=== PATIENT | male | born 1965 | race Caucasian/White ===

== ENCOUNTER 2018-04-18 07:15 | Inpatient (IN) | payer OTHER ==
--- NOTE | 2018-04-23 11:58 | GHP ---
[f rep st] PREOP HISTORY AND PHYSICAL DATE OF ADMISSION: 04/24/2018 PROBLEM: Left hip severe degenerative arthritis. HISTORY OF PRESENT ILLNESS: The patient is a 52-year-old man admitted for a left hip Marcos hip resurfacing arthroplasty. He lives in [place], [place]. He has had progressive pain in both hips fo r the past 9 years. He has daily pain and night pain. He is using ibuprofen regularly. His activit ies are very limited because of his hip pain. His hips are very stiff. He will undergo a left hip [place] hip resurfacing arthroplasty. He is scheduled to have the right hip done in June. PAST MEDICAL HISTORY: Overall he is in excellent general health. No history of heart disease, stent s, DVT, hepatitis, MRSA staph infections, sleep apnea or bleeding problems. CURRENT MEDICATIONS: None. ALLERGIES: Drug allergies: None. Metal allergy: None. Latex allergy: None. SOCIAL HISTORY: The patient is single but has a female partner. He does not smoke cigarettes and oc casionally drinks alcohol. He works as a oxyacetylene welder. PHYSICAL EXAMINATION: VITAL SIGNS: Height 5 feet, 11.5 inches. Weight 190 pounds. BMI 26.1. EYES : Conjunctivae and sclerae are clear. Pupils are round and reactive. MOUTH: Good oral hygiene. N o loose teeth. CHEST: Clear. HEART: Regular rhythm. No murmurs. EXTREMITIES: Pertinent finding s limited to his left hip. He flexes to 70 degrees. As he flexes the hip, he develops a 20-degree e xternal rotation contracture and has no further internal or external rotation. Abduction 20 degrees. IMAGING: His films show very severe degenerative arthritis of both hips. He is [id number] in both hips. Extensive osteophyte formation is present in the left hip. IMPRESSION ON ADMISSION: Severe bilateral hip degenerative arthritis. PLAN: He will undergo a left hip resurfacing arthroplasty. The surgery has been described to him an d his partner including the risks, complications, expectations, and recovery time. I have discussed with him the risk of dislocation, femoral neck fracture, infection, and sciatic nerve injury. I also have described to him in detail the potential risk with elevated metal ions in the blood and in the soft tissues around the hip joint. He understands that there are no 25-30 year followup studies on h ip resurfacing. All his questions have been answered, and he consents to surgery. /[id number]/MODL
[2018-04-24] MEDS ORDERED: FAMOTIDINE 20 MG TAB PO ONE (05:40)
[2018-04-24] MEDS ORDERED: ONDANSETRON 4 MG/2 ML VIAL IVP ONE (05:40)
[2018-04-24] MEDS ORDERED: ceFAZolin 2 GM/DEXTROSE 100 ML IV ONE (05:40)
[2018-04-24] MEDS ORDERED: DEXAMETHASONE 4 MG/ML VIAL IVP ONE (05:40)
[2018-04-24] MEDS ORDERED: GABAPENTIN 300 MG CAP PO ONE (05:40)
[2018-04-24] MEDS ORDERED: ACETAMINOPHEN 325 MG TAB PO ONE (05:40)
[2018-04-24] MEDS ORDERED: LR 1,000 ML IV ONE (05:43)
[2018-04-24] MEDS ORDERED: TRANEXAMIC ACID 1,000 MG in NS 100 ML IV ONE (06:00)
[2018-04-24] MEDS ORDERED: POVIDONE-IODINE 20 ML in SODIUM CL IRRIG SOLUTION 500 ML IRR ONE (06:00)
[2018-04-24] MEDS ORDERED: ROPIVACAINE 0.2% 80 MG, EPINEPHrine 0.2 MG, KETOROLAC TROMETHAMINE 30 MG in SYRINGE 0 ML IU ONE (06:00)
[2018-04-24] MEDS ORDERED: ceFAZolin 1 GM/5 ML SYR ONE (06:44)
[2018-04-24] MEDS ORDERED: MIDAZOLAM 2 MG/2 ML VIAL IVP ONE (07:00)
--- NOTE | 2018-04-24 07:03 | PDHPUP ---
History & Physical Update H&P update statement: This history and physical update is based on an assessment of the patient which was completed after admission or registration (within 24 hours), but prior to the surgery/procedure. H&P update: H&P reviewed & patient examined
--- NOTE | 2018-04-24 07:04 | PDANEPAE ---
ANE History of Present Illness Left hip Resurfacing ANE Past Medical History - Cardiovascular History Hx Hypertension: No Hx Arrhythmias: No Hx Chest Pain: No Hx Coronary Artery / Peripheral Vascular Disease: No Hx CHF / Valvular Disease: No Hx Palpitations: No - Pulmonary History Hx COPD: No Hx Asthma/Reactive Airway Disease: No Hx Recent Upper Respiratory Infection: No Hx Oxygen in Use at Home: No Hx Sleep Apnea: No Sleep Apnea Screening Result - Last Documented: Negative - Neurologic History Hx Cerebrovascular Accident: No Hx Seizures: No Hx Dementia: No - Endocrine History Hx Diabetes: No Hypothyroid: No Hyperthyroid: No Obesity: no - Renal History Hx Renal Disorders: No - Liver History Hx Hepatic Disorders: No - Neurological & Psychiatric Hx Hx Neurological and Psychiatric Disorders: No - Cancer History Hx Cancer: No - Congenital Disorder History Hx Congenital Disorders: No - GI History GERD: no Hx Gastrointestinal Disorders: No - Other Health History Other Health History: OA -BILAT HIP -L HIP WORSE - Chronic Pain History Chronic Pain: Yes (BILAT HIPS) - Surgical History Prior Surgeries: tonsillectomy-child;. L shoulder surgery s/p ; ANE Review of Systems Review of systems is: negative Review of Systems: - Exercise capacity METS (RN): 5 METS ANE Patient History - Allergies Allergies/Adverse Reactions: No Known Allergies Allergy (Unverified 04/09/18 11:44) - Home Medications Home Medications: Aspirin 04/09/18 [Last Taken 04/13/18] Ibuprofen 04/09/18 [Last Taken 04/13/18] - NPO status NPO Since - Liquids (Date): 04/24/18 NPO Since - Liquids (Time): 01:00 NPO Since - Solids (Date): 04/23/18 NPO Since - Solids (Time): 19:30 - Anes Hx Anes Hx: post operative nausea - Smoking Hx Smoking Status: Never smoked ANE Labs/Vital Signs - Vital Signs Blood Pressure: 132/85 Heart Rate: 66 Respiratory Rate: 16 O2 Sat (%): 98 Height: 180.34 cm Weight: 81.647 kg ANE Physical Exam - Airway Neck exam: FROM Mallampati Score: Class 1 Mouth exam: normal dental/mouth exam - Pulmonary Pulmonary: no respiratory distress, no rales or rhonchi - Cardiovascular Cardiovascular: regular rate and rhythym, no murmur, rub, or gallop - ASA Status ASA Status: I ANE Anesthesia Plan Anesthesia Plan: spinal Total IV Anesthesia: Yes
[2018-04-24] MEDS ORDERED: BUPIVACAINE/EPI 0.5% 30 ML SDV ONE ×2 (07:13→07:14)
[2018-04-24] MEDS ORDERED: BUPIVACAINE 0.25% 30 ML SDV ONE (07:19)
[2018-04-24] MEDS ORDERED: fentaNYL 100 MCG/2 ML INJ ONE ×2 (07:20→07:59)
[2018-04-24] MEDS ORDERED: PROPOFOL/EMULSION 500 MG/50 ML BOTTLE IV ONE ×2 (07:20→07:59)
[2018-04-24] MEDS ORDERED: LIDOCAINE 2% 5 ML SDV ONE (08:10)
[2018-04-24] MEDS ORDERED: ONDANSETRON 4 MG/2 ML VIAL ONE ×2 (08:10→10:14)
[2018-04-24] MEDS ORDERED: HYDROmorphONE/DILAUDID 1 MG/ML INJ IVP PRN (08:32)
[2018-04-24] MEDS ORDERED: fentaNYL 100 MCG/2 ML INJ IVP PRN (08:32)
[2018-04-24] MEDS ORDERED: PROMETHAZINE HCL 25 MG/ML INJ IVP PRN ×2 (08:32→09:08)
[2018-04-24] MEDS ORDERED: ACETAMINOPHEN 500 MG TAB PO PRN (08:32)
[2018-04-24] MEDS ORDERED: NALOXONE HCL 0.4 MG/ML INJ IVP PRN (08:32)
[2018-04-24] MEDS ORDERED: ONDANSETRON 4 MG/2 ML VIAL IVP PRN (08:32)
[2018-04-24] MEDS ORDERED: DIAZEPAM 5 MG/ML 1 ML SYR IVP PRN (08:32)
[2018-04-24] MEDS ORDERED: oxyCODONE IR 5 MG TAB PO PRN ×2 (08:32→09:08)
[2018-04-24] MEDS ORDERED: ONDANSETRON DISINTEGRATING 4 MG TAB PO PRN (09:08)
[2018-04-24] MEDS ORDERED: PROMETHAZINE HCL 25 MG SUPPR PR PRN (09:08)
[2018-04-24] MEDS ORDERED: diphenhydrAMINE 25 MG CAP PO PRN (09:08)
[2018-04-24] MEDS ORDERED: MAGNESIUM HYDROXIDE 30 ML UDCUP PO PRN (09:08)
[2018-04-24] MEDS ORDERED: BISACODYL 10 MG SUPP PR PRN (09:08)
[2018-04-24] MEDS ORDERED: METOCLOPRAMIDE 10 MG/2 ML VIAL IVP PRN (09:08)
[2018-04-24] MEDS ORDERED: LACTULOSE 20 GM/30 ML UDCUP PO PRN (09:08)
[2018-04-24] MEDS ORDERED: POLYETHYLENE GLYCOL 3350 17 GM PKT PO PRN (09:08)
[2018-04-24] MEDS ORDERED: CYCLOBENZAPRINE 10 MG TAB PO PRN (09:08)
[2018-04-24] MEDS ORDERED: DIPHENOXYLATE/ATROPINE LOMOTIL 1 TAB PO PRN (09:08)
[2018-04-24] MEDS ORDERED: TEMAZEPAM 15 MG CAP PO PRN (09:08)
[2018-04-24] MEDS ORDERED: traMADol 50 MG TAB PO PRN (09:08)
--- NOTE | 2018-04-24 09:08 | POSTOPPROG ---
Post Op Note Date of Operation: 04/24/18 Surgeon: Deep Garcia Chief Airport Guide: Claudia/Delmy Anesthesiologist: Kwesi Anesthesia: IV Sedation, Spinal Post-op Diagnosis: left hip arthritis Procedure: L BHR Inf/Abcess present in the surg proc area at time of surgery?: No EBL: 100-500
[2018-04-24] MEDS ORDERED: LR 1,000 ML IV SCH (09:30)
--- NOTE | 2018-04-24 09:58 | GOP ---
[f rep st] OPERATIVE REPORT DATE OF OPERATION: 04/24/2018 SURGEON: Deep Garcia MD TALENT ACQUISITION RELATIONSHIP MANAGER: Ko Taylor CFA. Harish Brock MD. ANESTHESIA: A combination of Marcaine, spinal, and IV sedation. ANESTHESIOLOGIST: By Kelly Orosco MD. PREOPERATIVE DIAGNOSIS: Left hip severe degenerative arthritis. POSTOPERATIVE DIAGNOSIS: Left hip severe degenerative arthritis. PROCEDURE PERFORMED: A left hip Marcos hip resurfacing arthroplasty. FINDINGS: ESTIMATED BLOOD LOSS: About 400 mL. I used a [employer] [place] hip resurfacing system. The acetabular component was 58 mm in d iameter and press-fit. The femoral head was 52 mm and cemented. He was awakened from anesthesia and rolled to the supine position on his [facility]. A long-leg compressive stocking and SCD were applied to the operative leg. He wore a stocking and SCD on the opposite leg during the procedure. An abduction pillow was placed between his knees. He was awakened from anesthesia and transferred to his [facility]. He was taken to PACU in satisfactory condition. There were no recognized intr aoperative complications. The sponge and needle count were correct on 2 occasions. Ko Taylor and Dr. Harish Brock acted as surgical assistants. Their assistance was a medical neces sity for safe completion of the procedure. DESCRIPTION OF PROCEDURE: The patient was given 2 g of IV Ancef preoperatively within 60 minutes of surgery. He also received IV tranexamic acid at a dose of 1000 mg. He was placed on the operating r oom table and given spinal anesthesia with Marcaine by Dr. Orosco. He was then placed supine and giv en IV sedation. A Mccollum catheter was not used. He wore a compressive stocking and SCD on the nonope rative leg. He was rolled to the right lateral decubitus position. An axillary roll was used, and a ll pressure points were carefully padded. The position was secured with the pegboard table attachmen t. I was careful to lock his pelvis in a vertical position. His perineum was isolated with plastic adhesive drapes. The left hip and left lower extremity were prepped with ChloraPrep. They were drap ed free using sterile sheets, stockinette, and Ioban plastic adhesive drape. The World Health Organization time-out was performed to verify the correct patient identity and the c orrect surgical side and site. The [place]har time-out was also performed. I made a 7-inch straight oblique posterolateral hip skin incision. The subcutaneous tissues were sha rply divided, and hemostasis was obtained using electrocautery. The fascia reinaldo was identified and s plit along the axis of its fibers. I then curved posteriorly and proximally, and split the fascia of the gluteus ellie and bluntly split the muscle fibers in line with their orientation. His sciatic nerve was identified and protected throughout the procedure. The Charnley self-retaining retractor was inserted. The external rotators and the posterior hip capsule were divided as separate layers at the base of the femoral neck, tagged, and reflected posteriorly. The gluteus ellie tendon was div ided and tagged in order to improve exposure and release tension on the sciatic nerve. The hip was d islocated posteriorly. He had severe degenerative changes on his femoral head. I used a sizing gaug e to check the diameter of the neck and concluded that 52 mm was the proper head size. I performed a complete circumferential capsulotomy. I was able to retract the femoral head anteriorly and superio rly, and hold it out of place with appropriate retractors. The remnant of his badly damaged labrum w as excised. His acetabulum was reamed sequentially up to 58 mm. I selected a 58 mm Monoblock porous -coated acetabular component with an outside diameter of 58 mm. This was firmly impacted and was a v lucy tight fit. I was careful to determine proper inclination and anteversion. I used the transverse acetabular ligament remnant and other acetabular bony landmarks to help me determine proper cup orie ntation. Large posterior inferior and anterior inferior osteophytes were removed with an osteotome a nd rongeur. I was careful to leave a good lip of bone and capsule extending beyond the anterior-infe rior lip of the metal cup. I made sure there were no remaining anterior acetabular osteophytes that would impinge on the femoral neck. I then returned to preparation of the femoral head. Using appropriate jigs and guides, I inserted a guide pin into the femoral head and neck. I was careful to position it in such a way that there woul d be no notching of the neck. The large sterile metal goniometer was used to check the neck shaft an gle. I reamed over the guide pin and inserted a reaming guide. I then used a cylindrical reamer snehal n to the head and neck junction. This was followed by the flat reamer and the chamfer reamer. The h ead was sized for 52 mm. There was no impingement or damage to the neck. I drilled a small hole in the lesser trochanter and inserted a suction cannula to create negative pressure in the medullary can al. Small holes were drilled on the flattened chamfer surfaces of the prepared head for cement ancho rs. The head was thoroughly cleaned with the pulsating lavage irrigation and thoroughly dried. I us ed a CarboJet device to blow dry the cancellous surfaces. A single batch of Simplex cement with tobr amycin was mixed. At about 50 seconds, I poured the liquid cement into the head component, inserted it onto the femoral head, and impacted it into place. Excess cement was removed before it hardened. The acetabulum was irrigated and cleaned, and inspected, and the hip was reduced 1 final time. Stabi lity and range of motion were checked. I placed my finger along the anterior aspect of the acetabula r component and flexed the hip to 110 degrees. There was no anterior impingement. The suction cannu la rebekah the lesser trochanter was removed. The wound was thoroughly irrigated with a dilute Betadine solution. 40 mL of the joint anesthetic cocktail was injected into the capsule, the deep musculature , and the subcutaneous tissues along the skin edges. The sciatic nerve was reinspected and looked unharmed. The external rotators and the posterior hip c apsule were repaired in separate layers with #2 FiberWire sutures through drill holes in the greater trochanter. The gluteus ellie was repaired with two #2 [id number] FiberWire sutures. The fas aquilino reinaldo was repaired first with 2 interrupted [id number]-[id number] #2 FiberWire sutures followed by a run queta #2 barbed Ethicon Stratafix PDO suture. The subcutaneous tissues were closed with a running 0 b arbed Ethicon Stratafix Monoderm suture. The skin was closed with a running 3-0 barbed Ethicon Strat afix Monoderm subcuticular suture. The skin edges were reapproximated and sealed with Dermabond glue . The wound was covered with a large sterile Mepilex waterproof dressing. The sacral Mepilex dressi ng was also applied. /[id number]/MODL
--- NOTE | 2018-04-24 10:17 | PDMN ---
Medical Necessity Medical necessity: MCG S565, Hip Resurfacing 2 days and S560 Hip Arthroplasty A- 2 days: Left hip Marcos hip resurfacing arthroplasty.
[2018-04-24] MEDS: KETOROLAC 15 MG/1 ML SDV IVP SCH ×2 (12:27→18:23)
[2018-04-24] MEDS: ACETAMINOPHEN 325 MG TAB PO SCH ×2 (12:29→18:24)
[2018-04-24] MEDS: ceFAZolin 2 GM/DEXTROSE 100 ML IV SCH (15:13)
--- NOTE | 2018-04-24 17:51 | POSTANESTH ---
Post Anesthetic Evaluation Cardiovascular Status: Normal, Stable Respiratory Status: Normal, Stable Level of Consciousness/Mental Status: Can Participate in Eval Pain Control: Adequate, Prn Tx Ordered Nausea/Vomiting Control: Adequate, Prn Tx Ordered Complications Possibly Related to Anesthesia: None Noted
[2018-04-24] MEDS: FAMOTIDINE 20 MG TAB PO SCH (21:04)
[2018-04-24] MEDS: SENNOSIDES/DOCUSATE SODIUM TAB PO SCH (21:05)
[2018-04-24] MEDS: ASPIRIN 325 MG TAB PO SCH (21:05)
[2018-04-25] MEDS: KETOROLAC 15 MG/1 ML SDV IVP SCH ×2 (00:09→05:45)
[2018-04-25] MEDS: ceFAZolin 2 GM/DEXTROSE 100 ML IV SCH (00:09)
[2018-04-25] MEDS: ACETAMINOPHEN 325 MG TAB PO SCH ×2 (00:10→05:46)
[2018-04-25 07:52] VITALS: BP 141/91
[2018-04-25] MEDS ORDERED: FERROUS SULFATE 140 MG TAB.ER PO SCH (09:00)
[2018-04-25] MEDS: ASPIRIN 325 MG TAB PO SCH (09:35)
--- NOTE | 2018-04-25 09:36 | SOAPPROG ---
SOAP Progress Note Assessment/Plan: Assessment: Afebrile. Mild pain. Up and walking in [place]. Has done stairs. Nausea yesterday, but better today. H/H is good. Sciatic nerve intact. Films look good. Dsg is dry. Plan: DC today. 04/25/18 09:35 Objective: Vital Signs Temp Pulse Resp BP Pulse Ox 36.9 C 81 16 141/91 H 98 04/25/18 07:49 04/25/18 07:49 04/25/18 07:49 04/25/18 07:49 04/25/18 07:49 Laboratory Results 04/25/18 04:52 04/24/18 04/25/18 04/26/18 05:59 05:59 05:59 Intake Total 2815 Output Total 1225 Balance 1590 ICD10 Worksheet Patient Problems: Problems Problem Status Onset Osteoarthritis of left hip Acute
[2018-04-25] MEDS: FAMOTIDINE 20 MG TAB PO SCH (09:39)
[2018-04-25] MEDS: SENNOSIDES/DOCUSATE SODIUM TAB PO SCH (09:39)
--- NOTE | 2018-04-25 09:50 | GDS ---
[f rep st] DISCHARGE SUMMARY ADMISSION DIAGNOSIS: Left hip severe degenerative arthritis. DISCHARGE DIAGNOSIS: Left hip severe degenerative arthritis. PROCEDURE PERFORMED: April 24, 2018, a left hip [place]cos hip resurfacing arthroplasty. POSTOPERATIVE COMPLICATIONS: None. CONDITION ON DISCHARGE: Improved. DESCRIPTION OF HOSPITAL COURSE: The patient was admitted to the hospital on the morning of surgery. His admission CBC was normal. The same day, under a combination of Marcaine, spinal, and IV sedatio n, he underwent a left hip [place] hip resurfacing arthroplasty. Postoperatively, he was treated with multimodal DVT prophylaxis, including aspirin. On the first postoperative day his hemoglobin an d hematocrit were 12.2 and 36.5. He was seen by Physical Therapy and made good progress with ambulat ion and stairs. By the time of discharge, he was afebrile, his wound was clean and dry, and he was i ndependent walking with a walker. DISPOSITION: The patient lives in [place]. He is staying in a local hotel. I will see him back in the office on Friday, April 27, 2018. He will continue aspirin 325 mg p.o. daily for 21 days. He has prescriptions for oxycodone and tramadol for pain control. Use an abduction pillow for 3 weeks. Us e ROSALINDA stockings for 1 week. If any problems, he is to call me at the office. /[id number]/MODL
--- NOTE | 2018-04-25 11:08 | ASMTLACE ---
[facility] Length of stay for Answers: 1 day current admission Acuity / Level of Answers: Yes Care: Did the patient have an inpatient admission? # of Emergency department Answers: 0 visits in the last 6 months Score: 4 Date Signed: 04/25/2018 11:07 AM Electronically Signed By:KRISTY Gupta
--- NOTE | 2018-04-25 11:57 | ASMTCMCOM ---
CM Note CM Note Notes: PT rec home/outpatient. Pt medically stable for d/c to local hotel for a few days before returning to [place]. No CM d/c needs identified. Date Signed: 04/25/2018 11:56 AM Electronically Signed By:KRISTY Gupta
--- NOTE | 2018-04-25 11:57 | ASDISCHSUM ---
Discharge Information Plan Status:Home with No Needs Medically Cleared to Leave: Discharge Date:04/25/2018 11:14 AM CM D/C Disposition:Home, Routine, Self-Care ADT D/C Disposition:Home, Routine, Self-Care Projected Discharge Date:04/25/2018 11:14 AM Transportation at D/C: Discharge Delay Reason: Follow-Up Date:04/25/2018 11:14 AM Discharge Slot: Final Diagnosis: Placement Information Patient Contact Information Contact Name:AKSHAT Relationship: Address:[address] Work Phone: [place] Phone: [facility]/Zip Code:[place] [address] Email: Financial Information Financial Class:[employer] Primary Plan Desc:[employer] OPEN ACC LOCAL Primary Plan Number:[id number] Secondary Plan Desc: Secondary Plan Number: Assessment Information LACE LACE Length of stay for Answers: 1 day current admission Acuity / Level of Answers: Yes Care: Did the patient have an inpatient admission? # of Emergency department Answers: 0 visits in the last 6 months Score: 4 Date Signed: 04/25/2018 11:07 AM Electronically Signed By:KRISTY Gupta [facility] CM Progress Note CM Note CM Note Notes: PT rec home/outpatient. Pt medically stable for d/c to [facility] for a few days before returning to [place]. No CM d/c needs identified. Date Signed: 04/25/2018 11:56 AM Electronically Signed By:KRISTY Gupta Intervention Information
== END 2018-04-25 11:14 | disposition home or self-care (01) | DRG 470 ==
LOC: F3N 04-24 05:32
PROVIDERS: ADMIT Orthopaedic Surgery; ATTEND Orthopaedic Surgery
PROC: 0SRB0J9 Replacement of Left Hip Joint with Synthetic Substitute, Cemented, Open Approach (ICD-10-PCS; principal; 2018-04-24 07:15)
DX: M16.12 Unilateral primary osteoarthritis, left hip (principal)
CPT/HCPCS: 97116-GP; 97161-GP; 97165-GO; 97530-GP; C1713; J0171; J0690; J1100; J1885; J2250; J2405; J2550; J2704; J2795; J3010